=== PATIENT | male | born 1985 | race Caucasian/White ===

== ENCOUNTER 2021-10-27 10:34 | Outpatient (CLI) | payer OTHER, SELFPAY ==
[2021-10-27 19:25] LABS: Alanine Aminotransferase 36 U/L (6-50); Albumin Level 4.2 g/dL (3.5-5.1); Alkaline Phosphatase 111 U/L (38-126); Anion Gap 8 mmol/L (8-16); Aspartate Amino Transferase 25 U/L (17-59); Bilirubin,Total 0.8 mg/dL (0.2-1.3); Blood Urea Nitrogen 10 mg/dL (9-20); Calcium 9.3 mg/dL (8.4-10.2); Carbon Dioxide 26 mmol/L (22-30); Chloride 103 mmol/L (98-107); Cholesterol 152 mg/dL (0-200); Estimated Glomerular Filt Rate > 60; Glucose 105 mg/dL (65-110); HDL Direct 42 mg/dL; Hematocrit 49.5 % (42.0-52.0); Hemoglobin 16.2 g/dL (14.0-18.0); Mean Corpuscular HGB Conc 32.7 g/dl (32-36); Mean Corpuscular Hemoglobin 29.6 pg (26-34); Mean Corpuscular Volume 90.3 fl (80-100); Mean Platelet Volume 9.8 fl (7.4-10.4); Platelet Count Result 313 k/mm3 (150-375); Potassium 4.2 mmol/L (3.4-5.0); Red Blood Count 5.48 M/mm3 (4.6-6.20); Red Cell Distribution Width 13.1 % (11.5-14.5); Sodium 137 mmol/L (137-145); Triglycerides 78 mg/dL (<150); White Blood Count 8.3 K/mm3 (4.5-10.0)
[2021-10-27 19:36] LABS: LDL Cholesterol Direct 92 mg/dL
== END 2021-10-27 10:35 | disposition home or self-care (01) ==
PROVIDERS: PCP Family Medicine; Visit Provider Family Medicine
DX: Z00.00 Encounter for general adult medical examination without abnormal findings (principal)
CPT/HCPCS: 36415; 80053; 80061; 85027

== ENCOUNTER 2021-12-18 07:26 | Outpatient (CLI) | payer OTHER, SELFPAY ==
--- NOTE | 2021-12-29 22:24 | WPDHOMESLEEP ---
Sleep Study - Home Unattended Date of Study: 12/18/21 Ordering Provider: Georges Byers MD Interpreting Provider: Noelle Botello, DO Home Sleep Study Type: Watch PAT Height: 1.83 m Weight: 106.594 kg Body Mass Index: 31.8 Neck Circumference (inches): 17.5 [place]: 14 Reason for Sleep Study Daytime hypersomnia, unrefreshing sleep, morning headaches. Previously diagnosed [facility] Sleep History The patient is a 36-year-old male with previously diagnosed sleep apnea that had a sleep study ordered by his primary care physician for evaluation of sleep apnea. 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 He rarely awakens from sleep short of breath. He rarely awakens at night with heartburn, belching or cough. He constantly snores loud enough that others complain. He frequently has trouble sleeping when he has a cold. He rarely wakes up gasping for air throughout the night. He frequently has breathing problems at night observed by himself or others. He occasionally sweats excessively at night. He occasionally has heart palpitations or irregular heartbeats during the night. He frequently falls asleep during the day but never while driving. He denies cataplexy. He denies having trouble at school or work due to sleepiness. He rarely feels unable to move when waking up or falling asleep. He rarely experiences vivid dreamlike scenes upon awakening or falling asleep. He denies feeling afraid of going to sleep. He rarely has nightmares. He occasionally remembers his dreams. He frequently has thoughts racing through his mind. He rarely feels sad or depressed. He rarely has anxiety. He rarely has muscular tension. He occasionally notices parts of his body jerk. He denies kicking during the night. He rarely has crawling and aching feelings in his legs and rarely has leg pain during the night. He rarely grinds his teeth during sleep and denies awakening with morning jaw pain. He is occasionally bothered by pain during the day but rarely awakened by pain during the night. He occasionally wakes up feeling stiff in the morning. He rarely wakes up with sore achy muscles. He rarely wakes up with pain in the neck, spine and other joints. He goes to bed at 11:00 p.m. on weekdays and between 10-11 p.m. on the weekends. It takes him 30 minutes to fall asleep. He wakes up 1-2 times throughout the night due use the restroom and get a drink. He is able to fall asleep within 20 minutes. On work days, he wakes up at 4:00 a.m. and on other days he wakes up between 6-7 a.m.. He typically gets 6 hours of sleep per night. He will stay in bed for 30 minutes to an hour after waking up in the morning. He currently lives with his children. He does work split shifts or rotating shifts. He does not consume any caffeinated beverages within 2 hours of bedtime. He does not engage in physical exercise before bedtime. He will watch television before falling asleep. He will take naps in the afternoon or the evening but they are not refreshing. He drinks 16-24 oz of caffeinated beverage per day. He quit smoking cigarettes several years ago. He denies alcohol and recreational drug use. 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 Prior to using the device, th
[2021-12-29 22:27] VITALS: BMI 31.8
--- NOTE | 2022-04-07 16:48 | SLEEP ---
PT IS WAITING FOR DENTAL APPLIANCE TO BE PAID THROUGH INSURANCE
--- NOTE | 2022-08-07 12:22 | SLEEP ---
pt is getting a dental appliance
== END 2021-12-19 10:12 | disposition home or self-care (01) ==
PROVIDERS: PCP Family Medicine; Visit Provider Family Medicine
DX: G47.33 Obstructive sleep apnea (adult) (pediatric) (principal)
CPT/HCPCS: 95800